=== PATIENT | female | born 1940 | race Caucasian/White ===

== ENCOUNTER → 2020-11-18 10:57 | Outpatient (BNVA) | payer MEDICARE, SELFPAY | PROVIDERS: PCP Family Medicine; Referring Provider Family Medicine; Visit Provider Student in an Organized Health Care Education/Training Program | DX: M70.51 Other bursitis of knee, right knee (principal); M17.12 Unilateral primary osteoarthritis, left knee; Z96.651 Presence of right artificial knee joint | CPT/HCPCS: 99203 ==

== ENCOUNTER → 2021-01-20 10:26 | Outpatient (BNVA) | payer MEDICARE, SELFPAY | PROVIDERS: PCP Family Medicine; Visit Provider Student in an Organized Health Care Education/Training Program | DX: M22.8X1 Other disorders of patella, right knee (principal); Z96.651 Presence of right artificial knee joint | CPT/HCPCS: 99213 ==

== ENCOUNTER 2024-11-15 13:11 | Outpatient (CLI) | payer MEDICARE, SELFPAY ==
[2024-11-15 14:11] VITALS: BP 127/67; PULSE 67; RESP 20; TEMP 36.7; O2SAT 97
--- NOTE | 2024-11-15 14:18 | PDOC.PAIN ---
Date of service: 11/15/24 Time of Service: 15:15 Pain Managment Procedure Note Procedure Note Procedure Note: Lumbar Transforaminal Epidural Steroid Injection ? Location: RIGHT L3-4 ? Pre-procedure Diagnosis: M54.17-Radiculopathy, lumbosacral region M54.16 Radiculopathy, lumbar region ? Post-procedure Diagnosis:? The same as above ? Sedation:? none ? Estimated blood loss:? less than 2 cc ? Surgeon:? Vikram Davila MD COMMENT: Patient has pain radiating to her right thigh. 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 ? Procedure Detail:?? The procedure and potential risks were explained to the patient and informed written consent was obtained. The patient was escorted to the procedure room and placed in the prone position. Pillows were utilized for proper positioning and comfort. Time out was performed in the procedure room with nursing staff confirming the patient's identity, procedure to be performed, allergies, and any blood thinning or anti-platelet medications. The patient's lower back was prepped with ChloraPrep and draped in a sterile fashion. Sterile gloves were used, a face mask was worn, and new single dose vials of all medications were used with the top being swabbed with alcohol and given time to dry prior to withdrawal of medication. A right-sided oblique fluoroscopic view was obtained, with visualization of L3-4. Lidocaine 1% was used to anesthetize the skin. The tip of a 22-gauge, Quincke needle was advanced toward the 6 o'clock position of the superior pedicle at the target level.? It was advanced just under the pedicle to the neural foramen L3-4. Correct needle placement was confirmed through review of the fluoroscopy. Next, following negative aspiration, 1cc's of Omnipaque 240 contrast was injected under live fluoroscopy which showed good flow throughout the epidural space and no evidence of vascular flow or flow into adjacent compartments. Next, following negative aspiration, 15 mg dexamethasone and 0.5ml of 0.5% bupivacaine was injected. The needle was gently removed.? ? The patient tolerated the procedure well.? Permanent images saved and recorded. Plan:? Follow up prn PAIN: PRE PROCEDURE 01/09 POST PROCEDURE COMMENT: I had asked the patient to get her cervical MRI from [place] so we could review and possibly update as she has significant balance issues. There is no recent imaging then I will order an MRI of her cervical spine. Coding Conscious Sedation used for procedure: No CPT Codes: Transforaminal Lumbar/Sacral (includes fluoro) - 89897 ([id number] ~G) Additional Codes: Date of Service (33066) Date of service: 11/15/24
[2024-11-15 14:51] VITALS: PULSE 64; O2SAT 97
[2024-11-15 15:00] VITALS: PULSE 67; O2SAT 97
--- NOTE | 2024-11-15 15:08 | DI.RAD_ITS ---
Exam(s) XR PAIN CLINIC LUMBAR SP 2V EXAM: XR PAIN CLINIC LUMBAR SP 2V CLINICAL HISTORY: Dx: Lumbar Radiculopathy. TECHNIQUE: Fluoroscopy was provided for the referring physician for guidance with performing pain cl inic injection procedure. COMPARISON: No exams were available for comparison FINDINGS: Please see procedure note for details. Fluoro time: 37 seconds RADIATION DOSE DELIVERED: Kar=10.42 mGy
[2024-11-15] MEDS: Bupivacaine 0.5% Pres-Free 10 ML VIAL IJ (15:12)
[2024-11-15] MEDS: Omnipaque 240 MG/ML 50 ML BTL IJ (15:12)
[2024-11-15] MEDS: Epidural Tray 1 EACH MC (15:12)
[2024-11-15] MEDS: Dexamethasone Sod. Phos./Pres-Free 10 MG/ML VIAL IJ (15:13)
== END 2024-11-15 13:12 | disposition home or self-care (01) ==
LOC: PC 13:11
PROVIDERS: PCP Family Medicine; Visit Provider Anesthesiology Pain Medicine
DX: M54.17 Radiculopathy, lumbosacral region (principal); M54.50 Low back pain, unspecified; M54.16 Radiculopathy, lumbar region
CPT/HCPCS: 64483; 72100; J0665; J1100; Q9967

== ENCOUNTER 2025-03-08 14:28 | Outpatient (CLI) | payer MEDICARE, SELFPAY ==
--- NOTE | 2025-03-08 06:00 | DI.RAD_ITS ---
Exam(s) XR PAIN CLINIC LUMBAR SP 2V EXAM: XR PAIN CLINIC LUMBAR SP 2V CLINICAL HISTORY: DX: Lumbar Radiculopathy TECHNIQUE: 2D and realtime digital imaging was performed. Radiologist not present. CONTRAST MATERIAL: None. COMPARISON: No exams were available for comparison FINDINGS: Fluoroscopy was provided for pain management therapy. Please refer to procedure report or details. Radiation Exposure Index: Ka,r=3.98 mGy IMPRESSION: As above. RADIATION DOSE DELIVERED:
[2025-03-08 14:45] VITALS: BP 118/58; PULSE 70; RESP 18; TEMP 36.4; O2SAT 97
[2025-03-08 15:23] VITALS: PULSE 76; RESP 16
[2025-03-08 15:24] VITALS: BP 166/72; PULSE 75; PULSE 76; RESP 18; O2SAT 95
[2025-03-08 15:30] VITALS: PULSE 74; RESP 19; O2SAT 99
[2025-03-08 15:31] VITALS: BP 156/66; PULSE 72; PULSE 74; RESP 20; O2SAT 97
[2025-03-08] MEDS: Epidural Tray 1 EACH MC (15:35)
[2025-03-08] MEDS: methylPREDNISolone ACETATE 80 MG/ML VIAL IJ (15:35)
[2025-03-08] MEDS: Omnipaque 240 MG/ML 50 ML BTL IJ (15:35)
--- NOTE | 2025-03-08 15:35 | PDOC.PAIN ---
Date of service: 03/08/25 Time of Service: 15:35 Pain Managment Procedure Note Procedure Note Procedure Note: PROCEDURE NOTE LUMBAR EPIDURAL STEROID INJECTION Date of Service: March 08, 2025 Patient:Ana Valdes? Provider: Gildardo Garcia DO, MPH Ana Hyman has been referred to the [facility] for a lumbar epidural steroid injection. Pre-operative diagnosis: Lumbosacral Radiculopathy ICD-10 M54.16 Post-operative diagnosis: Same Pre-Procedure Pain: VAS= 6 /10 Comments: I previously saw her in the clinic. She had an MRI lumbar on 09/15/24. Her symptoms are unchanged. Ana was interviewed and the medical record was reviewed.? There were no medical, pharmacologic, radiographic or other structural contraindications to attempting fluoroscopically guided Lumbar epidural steroid injection.? Risks, potential side effects, indications, and potential benefits of the procedure were reviewed with Ana.? Questions and concerns were addressed.? After it was clear that Ana was fully informed about the procedure, the printed consent form was signed by the patient and myself.? Ana was placed in the prone position on the fluoroscopy table and automated blood pressure cuff and pulse oximeter applied. The skin entry point for entering/approaching the epidural space for the lumbar epidural steroid injection was marked. Following thorough chlorhexadine preparation of the skin and draping and 1% lidocaine infiltration of the skin entry point and subcutaneous tissues, an 18 gauge Touhy needle was placed and advanced under fluoroscopic guidance and with loss of resistance technique into the L5-S1 epidural space. Needle tip placement and depth were aided and confirmed by fluoroscopy. There was no paresthesia or return of blood or CSF through the needle. 1 mls of Omnipaque 240 was injected with clear epidural spread confirmed with fluoroscopy. 80 mg of Depo-Medrol was? injected. This was followed by 1 ml of preservative-free normal saline to flush the steroid out of the needle. There was no unusual discomfort expressed by Ana. The needle was withdrawn without difficulty. (49 mls of Omnipaque was wasted) Ana was observed and was without hemodynamic, neurologic, or allergic reactions.? Fluoroscopic images were digitally archived. Ana's vital signs were stable throughout the procedure and were as recorded in nursing records. Follow up plans and appointments were discussed with Ana. Post procedure instruction was given as documented in nursing records and having met discharge criteria Ana was discharged from the [facility]. COMMENTS: No apparent complications. Post-procedure pain: VAS= 3/10. Ana to contact [facility] as needed. If at least 50% improvement in pain and/or function for at least 3 months is achieved, this procedure can be repeated. I personally performed this entire procedure. GILDARDO GARCIA DO, MPH ABPMR-subspecialty board certification in Pain Medicine [facility] Coding Conscious Sedation used for procedure: No CPT Codes: Inj Spine L/S w/Imaging - 06180 ([id number] ~G) Additional Codes: Date of Service (11124) Date of service: 03/08/25 Diagnoses: Lumbar radiculopathy
== END 2025-03-08 14:29 | disposition home or self-care (01) ==
LOC: PC 14:29
PROVIDERS: PCP Family Medicine; Visit Provider Preventive Medicine Occupational Medicine
DX: M54.50 Low back pain, unspecified (principal); M54.16 Radiculopathy, lumbar region
CPT/HCPCS: 62323; 72100; J1010; Q9967